=== PATIENT | female | born 1980 | race Caucasian/White ===

== ENCOUNTER 2019-06-23 06:38 | Emergency (ER) | payer OTHER ==
[~2019-06-23] VITALS: Ht 167.6 cm; Wt 71.7 kg
[2019-06-23 07:14] LABS: BILIRUBIN,URINE NEGATIVE (NEG); CLARITY,URINE CLEAR; COLOR,URINE YELLOW; NITRITE,URINE NEGATIVE (NEG); PROTEIN,URINE NEGATIVE (NEG-TRACE); UROBILINOGEN,URINE 0.2 mg/dL (0.2 mg/dL)
[2019-06-23 07:42] LABS: BACTERIA,URINE 0 /HPF (0-FEW); RBC,URINE 0 /HPF (0-2); SQUAMOUS EPITHELIAL CELL,UR FEW /LPF
[2019-06-23] MEDS ORDERED: IV NORMAL SALINE 1000ML BAG 1,000 ML IV SCH (07:44)
[2019-06-23] MEDS ORDERED: KETOROLAC 30 MG/ML VIAL. IV ONE (07:45)
[2019-06-23 08:00] LABS: BASO # 0.1 x10^3/uL (0.0-0.2); BASO % 1 % (0-3); EOS # 0.2 x10^3/uL (0.0-0.7); EOS % 4 % (0-3); HEMATOCRIT 37.3 % (36.0-47.0); HEMOGLOBIN 12.6 g/dL (12.0-15.5); LYMPH # 1.9 x10^3/uL (1.0-4.8); LYMPH % 29 % (24-48); MEAN CORPUSCULAR HEMOGLOBIN 31 pg (25-35); MEAN CORPUSCULAR HGB CONC 34 g/dL (31-37); MEAN CORPUSCULAR VOLUME 91 fL (79-100); MONO # 0.6 x10^3/uL (0.0-1.1); MONO % 10 % (0-9); NEUT # 3.8 x10^3/uL (1.8-7.7); NEUT % 57 % (31-73); PLATELET COUNT 395 x10^3/uL (140-400); RED BLOOD COUNT 4.11 x10^6/uL (3.50-5.40); RED CELL DISTRIBUTION WIDTH 12.4 % (11.5-14.5); WHITE BLOOD COUNT 6.7 x10^3/uL (4.0-11.0)
[2019-06-23 08:09] LABS: CREATININE 0.9 mg/dL (0.6-1.0); GFR 70.1; POTASSIUM 4.3 mmol/L (3.5-5.1)
[2019-06-23 08:14] LABS: ALBUMIN 3.4 g/dL (3.4-5.0); ALBUMIN/GLOBULIN RATIO 0.8 (1.0-1.7); TOTAL BILIRUBIN 0.4 mg/dL (0.2-1.0); TOTAL PROTEIN 7.9 g/dL (6.4-8.2)
--- NOTE | 2019-06-23 08:27 | RAD ---
Examination: CT of the abdomen pelvis without contrast HISTORY: History of right lower quadrant pain, flank pain COMPARISON: None available TECHNIQUE: Axial CT images of the abdomen pelvis were performed without contrast. Coronal and sagittal reformats performed Exposure: One or more of the following individualized dose reduction techniques were utilized for this examination: 1. Automated exposure control 2. Adjustment of the mA and/or kV according to patient size 3. Use of iterative reconstruction technique FINDINGS: The bibasilar lungs are clear. No evidence of free air identified in the abdomen. The evaluation of the solid organs is limited due to lack of IV contrast. The evaluation of bowel is limited due to lack of oral contrast.. The visualized noncontrasted liver, spleen, adrenals grossly appears unremarkable. The gallbladder is mildly distended. The stomach is mildly distended. The visualized pancreas grossly appears unremarkable. The small bowel is nondilated. Feces and gas noted in the colon. The urinary bladder is mildly distended. There is minimal foci of air identified in the anterior urinary bladder with surrounding fat stranding. Questionable fat stranding identified about the distal right ureter however the evaluation of the distal ureter is limited due to multiple bowel loops. No evidence of hydronephrosis. Mild degenerative changes lumbar spine. Probable pelvic phleboliths identified. No evidence of lytic bony destructive lesion. IMPRESSION: 1. Tiny foci of air identified in the anterior urinary bladder with surrounding fat stranding and minimal questionable fat stranding identified about the distal right ureter. Correlate for urinary tract infection/cystitis/pyelitis. The evaluation of the distal ureters is limited due to multiple nondistended bowel loops. Electronically signed by: Vignesh Nice MD (06/23/2019 8:24 AM) [id number]
[2019-06-23 08:57] VITALS: BP 112/67
[2019-06-23] MEDS ORDERED: ONDANSETRON PF 4 MG/2 ML VIAL. IV ONE (09:00)
[2019-06-23] MEDS ORDERED: fentaNYL PF VIAL 100 MCG/2 ML VIAL IVP ONE (09:00)
--- NOTE | 2019-06-23 09:23 | PHYS DOC ---
Past Medical History Past Medical History: Fibromyalgia Past Surgical History: Appendectomy, Other Additional Past Surgical Histo: NEPHRECTOMY, BLADDER REFLUX, ABDOMINOPLASTY, BREAST AUGMENTATION Alcohol Use: None Drug Use: None Adult General Chief Complaint Chief Complaint: FLANK PAIN [facility] HPI Patient is a 38 year old female with history of fibromyalgia who presents with complaint of right lower quadrant pain. Patient complaining of intermittent episodes of right lower quadrant pain for 3 months that usually lasts for one day and happened in irregular pattern without nausea and vomiting and diarrhea and constipation and urinary symptom. Patient complaining of right lower quadrant pain. Patient to right flank for the last 2 days as a constant pain that getting better and worse vomiting. Patient denies fever and chills, anorexia, vaginal bleeding or discharge, diarrhea and constipation. Patient rated her pain 7. She has history of appendectomy. Review of Systems Review of Systems Constitutional: Denies fever or chills [] Eyes: Denies change in visual acuity, redness, or eye pain [] HENT: Denies nasal congestion or sore throat [] Respiratory: Denies cough or shortness of breath [] Cardiovascular: No additional information not addressed in HPI [] GI: Reports abdominal pain, nausea, denies vomiting, bloody stools or diarrhea [] : Denies dysuria or hematuria [] Musculoskeletal: Denies back pain or joint pain [] Integument: Denies rash or skin lesions [] Neurologic: Denies headache, focal weakness or sensory changes [] Endocrine: Denies polyuria or polydipsia [] All other systems were reviewed and found to be within normal limits, except as documented in this note. Current Medications Current Medications Current Medications Medications (Trade) Dose Ordered Sig/[facility] Start Time Stop Time Status Last Admin Dose Admin Fentanyl Citrate (Fentanyl 2ml Vial) 50 mcg 1X ONCE 06/23/19 09:00 06/23/19 09:01 DC 06/23/19 09:20 50 MCG Ketorolac Tromethamine (Toradol 30mg Vial) 30 mg 1X ONCE 06/23/19 07:45 06/23/19 07:54 DC 06/23/19 08:34 30 MG Ondansetron HCl (Zofran) 4 mg 1X ONCE 06/23/19 09:00 06/23/19 09:01 DC 06/23/19 09:20 4 MG Sodium Chloride 1,000 ml @ 1,000 mls/hr Q1H 06/23/19 07:44 06/23/19 08:43 DC 06/23/19 08:34 1,000 MLS/HR Allergies Allergies Allergies Coded Allergies Type Severity Reaction Last Updated Verified No Known Drug Allergies 06/23/19 No Physical Exam Physical Exam Constitutional: Well developed, well nourished, mild distress, non-toxic appearance. [] HENT: Normocephalic, atraumatic. Eyes: PERRLA, EOMI, conjunctiva normal, no discharge. [] Neck: Normal range of motion, no tenderness, supple, no stridor. [] Cardiovascular:Heart rate regular rhythm, no murmur [] Lungs & Thorax: Bilateral breath sounds clear to auscultation [] Abdomen: Bowel sounds normal, soft, no tenderness, no masses, no pulsatile masses. [] Skin: Warm, dry, no erythema, no rash. [] Back: No tenderness, no CVA tenderness. [] Extremities: No tenderness, no cyanosis, no clubbing, ROM intact, no edema. [] Neurologic: Alert and oriented X 3, no focal deficits noted. [] Psychologic: Affect normal, judgement normal, mood normal. [] Current Patient Data Vital Signs Vital Signs Date Time Temp Pulse Resp B/P (MAP) Pulse Ox O2 Delivery O2 Flow Rate FiO2 06/23/19 09:20 18 06/23/19 08:57 66 112/67 (82) 98 Room Air 06/23/19 07:29 97.5 97.5 Lab Values Laboratory Tests Test 06/23/19 06:56 06/23/19 07:00 06/23/19 07:37 POC Urine HCG, Qualitative Hcg negative (Negative) Urine Collection Type Unknown Urine Color Yellow Urine Clarity Clear Urine pH 6.0 Urine Specific [place] 1.025 Urine Protein Negative mg/dL (NEG-TRACE) Urine Glucose (UA) Negative mg/dL (NEG) Urine Ketones (Stick) Negative mg/dL (NEG) Urine Blood Negative (NEG) Urine Nitrite Negative (NEG) Urine Bilirubin Negative (NEG) Urine Urobilinogen Dipstick 0.2 mg/dL (0.2 mg/dL) Urine Leukocyte Esterase Negative (NEG) Urine RBC 0 /HPF (0-2) Urine WBC 1-4 /HPF (0-4) Urine Squamous Epithelial Cells Few /LPF Urine Bacteria 0 /HPF (0-FEW) Urine Mucus Mod /LPF White Blood Count 6.7 x10^3/uL (4.0-11.0) Red Blood Count 4.11 x10^6/uL (3.50-5.40) Hemoglobin 12.6 g/dL (12.0-15.5) Hematocrit 37.3 % (36.0-47.0) Mean Corpuscular Volume 91 fL (79-100) Mean Corpuscular Hemoglobin 31 pg (25-35) Mean Corpuscular Hemoglobin Concent 34 g/dL (31-37) Red Cell Distribution Width 12.4 % (11.5-14.5) Platelet Count 395 x10^3/uL (140-400) Neutrophils (%) (Auto) 57 % (31-73) Lymphocytes (%) (Auto) 29 % (24-48) Monocytes (%) (Auto) 10 % (0-9) H Eosinophils (%) (Auto) 4 % (0-3) H Basophils (%) (Auto) 1 % (0-3) Neutrophils # (Auto) 3.8 x10^3/uL (1.8-7.7) Lymphocytes # (Auto) 1.9 x10^3/uL (1.0-4.8) Monocytes # (Auto) 0.6 x10^3/uL (0.0-1.1) Eosinophils # (Auto) 0.2 x10^3/uL (0.0-0.7) Basophils # (Auto) 0.1 x10^3/uL (0.0-0.2) Sodium Level 139 mmol/L (136-145) Potassium Level 4.3 mmol/L (3.5-5.1) Chloride Level 102 mmol/L (98-107) Carbon Dioxide Level 29 mmol/L (21-32) Anion Gap 8 (6-14) Blood Urea Nitrogen 18 mg/dL (7-20) Creatinine 0.9 mg/dL (0.6-1.0) Estimated GFR (Cockcroft-Gault) 70.1 BUN/Creatinine Ratio 20 (6-20) Glucose Level 95 mg/dL (70-99) Calcium Level 9.0 mg/dL (8.5-10.1) Total Bilirubin 0.4 mg/dL (0.2-1.0) Aspartate Amino Transferase (AST) 21 U/L (15-37) Alanine Aminotransferase (ALT) 33 U/L (14-59) Alkaline Phosphatase 98 U/L (46-116) Total Protein 7.9 g/dL (6.4-8.2) Albumin 3.4 g/dL (3.4-5.0) Albumin/Globulin Ratio 0.8 (1.0-1.7) L Lipase 332 U/L (73-393) Laboratory Tests 06/23/19 07:37 Laboratory Tests 06/23/19 07:37 EKG EKG [] Radiology/Procedures Radiology/Procedures [][facility] [address] [place], [place] [id number] IMAGING REPORT Signed PATIENT: STEPHANIE KENT ACCOUNT: [id number] : 1980 LOCATION: ER AGE: 38 SEX: F EXAM STATUS: REG ER ORD. PHYSICIAN: BOUBACAR QUINTERO MD REASON: right lower quadrant and right flank pain PROCEDURE: CT ABDOMEN PELVIS WO CONTRAST Examination: CT of the abdomen pelvis without contrast HISTORY: History of right lower quadrant pain, flank pain COMPARISON: None available TECHNIQUE: Axial CT images of the abdomen pelvis were performed without contrast. Coronal and sagittal reformats performed Exposure: One or more of the following individualized dose reduction techniques were utilized for this examination: 1. Automated exposure control 2. Adjustment of the mA and/or kV according to patient size 3. Use of iterative reconstruction technique FINDINGS: The bibasilar lungs are clear. No evidence of free air identified in the abdomen. The evaluation of the solid organs is limited due to lack of IV contrast. The evaluation of bowel is limited due to lack of oral contrast.. The visualized noncontrasted liver, spleen, adrenals grossly appears unremarkable. The gallbladder is mildly distended. The stomach is mildly distended. The visualized pancreas grossly appears unremarkable. The small bowel is nondilated. Feces and gas noted in the colon. The urinary bladder is mildly distended. There is minimal foci of air identified in the anterior urinary bladder with surrounding fat stranding. Questionable fat stranding identified about the distal right ureter however the evaluation of the distal ureter is limited due to multiple bowel loops. No evidence of hydronephrosis. Mild degenerative changes lumbar spine. Probable pelvic phleboliths identified. No evidence of lytic bony destructive lesion. IMPRESSION: 1. Tiny foci of air identified in the anterior urinary bladder with surrounding fat stranding and minimal questionable fat stranding identified about the distal right ureter. Correlate for urinary tract infection/cystitis/pyelitis. The evaluation of the distal ureters is limited due to multiple nondistended bowel loops. Electronically signed by: Vignesh Nice MD (06/23/2019 8:24 AM) [id number] DICTATED and SIGNED BY: VIGNESH NICE MD DATE: 06/23/19 0824 [facility] [address] [place] [address] IMAGING REPORT Signed PATIENT: STEPHANIE KENT ACCOUNT: [id number] : 1980 LOCATION: ER AGE: 38 SEX: F EXAM STATUS: REG ER ORD. PHYSICIAN: BOUBACAR QUINTERO MD REASON: right lower quadrant and pelvic pain PROCEDURE: PELVIS W/TV Pelvic ultrasound HISTORY: Right lower quadrant and pelvic pain. Possibility of urinary tract infection raised on CT scan of same day. Transabdominal scan: Uterus demonstrates no obvious abnormality but limited visualization. Ovaries are not seen. Endovaginal scan: Uterus measures 9.6 x 5.5 x 5.6 cm. Uterus is retroverted. Endometrial stripe measures 8 mm and is homogeneous. Right ovary measures 3.9 x 2.5 x 3.2 cm. Intact blood flow is documented. Right ovarian lesion most compatible with a septated cyst is identified, measuring 2.8 cm diameter. This does demonstrate some peripheral hypervascularity. Multiple smaller follicles are noted. Left ovary measures 2.6 x 1.7 x 1.9 cm. Intact blood supply to the left ovary. At least 2 follicular cysts are identified in the left ovary, one measuring 16 mm and the other measuring 17 mm. Free fluid identified within the cul-de-sac. This appears complex, with internal septations. IMPRESSION: 1. Complex free pelvic fluid in the cul-de-sac. Nonspecific, but possibilities include hemorrhage, infection/peritonitis, or ruptured ovarian cyst. 2. Right ovarian septated cystic lesion with peripheral hypervascularity. This may just represent a cyst, but recommend follow-up ultrasound in 2-6 weeks. Electronically signed by: Francesco Sandoval MD (06/23/2019 9:56 AM) [facility] DICTATED and SIGNED BY: FRANCESCO SANDOVAL MD DATE: 06/23/19 0956 Course & Med Decision Making Course & Med Decision Making Pertinent Labs and Imaging studies reviewed. (See chart for details) Evaluation of patient in ER showed 38-year-old female patient with intermittent episodes of right lower quadrant pain for 3 months that getting worse for the last couple days. Patient had unremarkable physical exam and CBC and CMP and UA. CT of abdomen and pelvis did not show acute finding. Pelvic ultrasound showed small amount of fluid in pelvis and concern for hemorrhagic ovarian cyst. Patient felt better with treatment in ER. Patient was advised to follow-up with her [employer]. I've spoken with the patient and/or caregivers. I've explained the patient's condition, diagnosis and treatment plan based on information available to me at this time. I've answered the patient's and/or caregivers questions and addressed any concerns. The patient and/or caregivers have a good understanding the patient's diagnosis, condition and treatment plan as can be expected at this point. Vital signs have been stabilized. The patient's condition is stable for discharge from the emergency department. The patient will pursue further outpatient evaluation with her primary care provider or other designated consulting physician as outlined in the discharge instructions. Patient and/or caregivers are agreeable to this plan of care and follow-up instructions have been explained in detail. The patient and/or caregivers have received these instructions in written format and expressed und erstanding of these discharge instructions. The patient and her caregivers are aware that if any significant change in condition or worsening of symptoms should prompt him to immediately return to this of the closest emergency department. If an emergent department is not readily available I would e ncourage him to call 911. Son Disclaimer Son Disclaimer This electronic medical record was generated, in whole or in part, using a voice recognition dictation system. Departure Departure Impression: Primary Impression: Ruptured ovarian cyst Additional Impression: Right lower quadrant pain Disposition: HOME, SELF-CARE (at 1044) Condition: IMPROVED Referrals: NO PCP (PCP) Patient Instructions: Ovarian Cyst Additional Instructions: Drink plenty of liquids Follow-up with your primary care physician in 3-5 days Return to ER if not getting better Thank you for visiting [facility]. We appreciate you trusting us with your care. If any additional problems come up don't hesitate to return to visit us. Please follow up with your primary care provider so they can plan additional care if needed and know about the problem that you had. If symptoms worsen come back to the Emergency Department. Any concerning symptoms that start such as chest pain, shortness of air, weakness or numbness on one side of the body, running high fevers or any other concerning symptoms return to the ER. Scripts Hydrocodone/Apap 5-325 (NORCO 5-325 TABLET) 1 Each Tablet 1 TAB PO PRN Q6HRS PRN for PAIN, #14 TAB 0 Refills Prov: BOUBACAR QUINTERO MD 06/23/19 Problem Qualifiers BOUBACAR QUINTERO MD Jun 23, 2019 09:23
--- NOTE | 2019-06-23 09:59 | RAD ---
Pelvic ultrasound HISTORY: Right lower quadrant and pelvic pain. Possibility of urinary tract infection raised on CT scan of same day. Transabdominal scan: Uterus demonstrates no obvious abnormality but limited visualization. Ovaries are not seen. Endovaginal scan: Uterus measures 9.6 x 5.5 x 5.6 cm. Uterus is retroverted. Endometrial stripe measures 8 mm and is homogeneous. Right ovary measures 3.9 x 2.5 x 3.2 cm. Intact blood flow is documented. Right ovarian lesion most compatible with a septated cyst is identified, measuring 2.8 cm diameter. This does demonstrate some peripheral hypervascularity. Multiple smaller follicles are noted. Left ovary measures 2.6 x 1.7 x 1.9 cm. Intact blood supply to the left ovary. At least 2 follicular cysts are identified in the left ovary, one measuring 16 mm and the other measuring 17 mm. Free fluid identified within the cul-de-sac. This appears complex, with internal septations. IMPRESSION: 1. Complex free pelvic fluid in the cul-de-sac. Nonspecific, but possibilities include hemorrhage, infection/peritonitis, or ruptured ovarian cyst. 2. Right ovarian septated cystic lesion with peripheral hypervascularity. This may just represent a cyst, but recommend follow-up ultrasound in 2-6 weeks. Electronically signed by: Francesco Sandoval MD (06/23/2019 9:56 AM) [id number]
[2019-06-23] MEDS ORDERED: HYDR-3164 PO (10:46)
== END 2019-06-23 11:47 | disposition home or self-care (01) ==
LOC: ER 06:38
DX: N83.291 Other ovarian cyst, right side (principal); M79.7 Fibromyalgia; Z90.89 Acquired absence of other organs
CPT/HCPCS: 36415; 74176; 76830; 76856; 80053; 81001; 81025; 83690; 85025; 96374; 96375; 99285; J1885; J2405; J3010; J7030; 96361